=== PATIENT | female | born 1970 | race Caucasian/White ===

== ENCOUNTER 2022-02-12 09:58 | Observation (INO) | payer BC ==
--- NOTE | 2022-02-12 10:29 | ERPHSYRPT ---
- History of Present Illness Time Seen by Provider: 02/12/22 10:05 Historian: patient Exam Limitations: no limitations Patient Subjective Stated Complaint: PT states "On saturday I started to have chest pain and it just kept geting worse and worse." Triage Nursing Assessment: Pt presented alert and oriented X 3, skin wpd. Pt ambulates with an upright steady gait, able to speak in clear full sentences pt in no apparent respiratory distress. Physician History: Patient is a 51-year-old female presents emergency department for evaluation of chest pain. Patient has been experiencing intermittent chest pain for the past 3 days. Chest pain tends to radiate into her right arm, and jaw. Patient is nauseous and diaphoretic. Symptoms are intermittent. Symptoms are moderate in intensity. No specific worsening improving factors. Patient does not get routine healthcare checkups. She does not know her cholesterol level or any other significant cardiac risk factors. Patient has a history of obesity including a lap band procedure. The Lap-Band was removed recently due to complications. Patient voices no other complaint or concerns at this time. Portions of this note were created with voice recognition technology. There may be grammatical, spelling, punctuation or sound alike errors Timing/Duration: day(s) (3 days) Activities at Onset: none Quality: aching Location: substernal Chest Pain Radiation: jaw, arm, back Severity of Pain-Max: moderate Severity of Pain-Current: mild Modifying Factors: Improves With: nothing Associated Symptoms: nausea, diaphoresis Prior Chest Pain/Cardiac Workup: no prior chest pain, no prior cardiac workup Nitro Today/Relief: no nitro taken today Aspirin Treatment Today: no aspirin today Allergies/Adverse Reactions: ibuprofen Allergy (Severe, Verified 02/12/22 10:06) Swelling Iodinated Contrast Media Allergy (Severe, Verified 02/12/22 10:06) Swelling Home Medications: No Reportable Medications [No Reported Medications] 02/12/22 [History] Hx Tetanus, Diphtheria Vaccination/Date Given: No Hx Influenza Vaccination/Date Given: No Hx Pneumococcal Vaccination/Date Given: No Immunizations Up to Date: Yes Travel Risk - International Travel Have you traveled outside of the country in past 3 weeks: No - Coronavirus Screening Are you exhibiting any of the following symptoms?: No Close contact with a COVID-19 positive Pt in past 14-21 Days: No - Vaccine Status Have you recieved a Covid-19 vaccination: No - Review of Systems Constitutional: No Symptoms, No Fever, No Chills Eyes: No Symptoms Ears, Nose, & Throat: No Symptoms Respiratory: No Symptoms, No Cough, No Dyspnea Cardiac: No Symptoms, No Chest Pain, No Edema, No Syncope Abdominal/Gastrointestinal: No Symptoms, No Abdominal Pain, No Nausea, No Vomiting, No Diarrhea Genitourinary Symptoms: No Symptoms, No Dysuria Musculoskeletal: No Symptoms, No Back Pain, No Neck Pain Skin: No Symptoms, No Rash Neurological: No Symptoms, No Dizziness, No Focal Weakness, No Sensory Changes Psychological: No Symptoms Endocrine: No Symptoms Hematologic/Lymphatic: No Symptoms Immunological/Allergic: No Symptoms All Other Systems: Reviewed and Negative - Past Medical History Pertinent Past Medical History: Yes Psycho-Social History: Depression - Past Surgical History Past Surgical History: Yes Other Surgical History: lap band. lap band removal. colon. kidney stone. c section - Social History Smoking Status: Never smoker Exposure to second hand smoke: No Drug Use: none Patient Lives Alone: No - Nursing Vital Signs Nursing Vital Signs: Initial Vital Signs Temperature 97.9 F 02/12/22 09:59 Pulse Rate 74 02/12/22 09:59 Respiratory Rate 20 02/12/22 09:59 Blood Pressure 148/89 02/12/22 09:59 O2 Sat by Pulse Oximetry 94 L 02/12/22 09:59 Pain Scale Pain Intensity 0 - Physical Exam General Appearance: no apparent distress, alert Eye Exam: PERRL/EOMI, eyes nml inspection Ears, Nose, Throat Exam: normal ENT inspection, moist mucous membranes Neck Exam: normal inspection, non-tender, supple, full range of motion Respiratory Exam: normal breath sounds, lungs clear, No respiratory distress Cardiovascular Exam: regular rate/rhythm, normal heart sounds Gastrointestinal/Abdomen Exam: soft, No tenderness, No mass Back Exam: normal inspection, No CVA tenderness, No vertebral tenderness Extremity Exam: normal inspection, normal range of motion Neurologic Exam: alert, oriented x 3, cooperative, normal mood/affect, sensation nml, No motor deficits Skin Exam: normal color, warm, dry Lymphatic Exam: No adenopathy SpO2 Interpretation: normal SpO2: 94 O2 Delivery: Room Air - Course Nursing assessment & vital signs reviewed: Yes EKG Interpreted by Me: RATE (75), Sinus Rhythm, NORMAL AXIS, NORMAL INTERVALS (Nonspecific T wave abnormalities anterior leads) - Radiology Exams Chest X-ray Interpretation: Teleradiologist Report Ordered Tests: Active Orders 24 hr Category Date Time Status Keyboard Specialist STAT Care 02/12/22 10:23 Active EKG-ER Only STAT Care 02/12/22 10:21 Active IV Insertion STAT Care 02/12/22 10:21 Active Pulse Oximetry (ED) STAT Care 02/12/22 10:21 Active CHEST 1 VIEW (PORTABLE) Stat Exams 02/12/22 11:14 Completed CBC W DIFF Stat Lab 02/12/22 10:31 Completed CMP Stat Lab 02/12/22 10:31 Completed D-DIMER QUANTITATIVE Stat Lab 02/12/22 10:31 Completed TROPONIN Q4H Lab 02/12/22 10:31 Completed TROPONIN Q4H Lab 02/12/22 14:30 Ordered TROPONIN Q4H Lab 02/12/22 18:30 Ordered UA W/RFX CULTURE Stat Lab 02/12/22 10:34 Completed Transfer Order Routine Transfer 02/12/22 Ordered Medication Summary Discontinued Medications Generic Name Dose Route Start Last Admin Trade Name Freq PRN Reason Stop Dose Admin Nitroglycerin 1 gm 02/12/22 11:13 02/12/22 11:17 Nitroglycerin 1 Gm Packet TOP 02/12/22 11:14 1 gm STAT ONE Administration Nitroglycerin Confirm 02/12/22 11:17 Nitroglycerin 1 Gm Packet Administered 02/12/22 11:18 Dose 1 gm .ROUTE .STK-MED ONE Lab/Rad Data: Laboratory Result Diagrams 02/12/22 10:31 02/12/22 10:31 Laboratory Results 02/12/22 02/12/22 02/12/22 Range/Units 11:24 10:34 10:31 WBC (4.0-10.5) x10^3/uL RBC (4.1-5.4) x10^6/uL Hgb (12.0-16.0) g/dL Hct (35-47) % MCV (78-100) fL MCH (26-32) pg MCHC (32-36) g/dL RDW (11.5-14.0) % Plt Count (150-450) x10^3/uL MPV (7.5-11.0) fL Gran % (36.0-66.0) % Immature Gran % (Auto) (0.00-0.4) % Nucleat RBC Rel Count (0.00-0.1) % Eos # (Auto) (0-0.5) x10^3/uL Immature Gran # (Auto) (0.00-0.03) x10^3u/L Absolute Lymphs (auto) (1.0-4.6) x10^3/uL Absolute Monos (auto) (0.0-1.3) x10^3/uL Absolute Nucleated RBC (0.00-0.01) x10^3u/L Lymphocytes % (24.0-44.0) % Monocytes % (0.0-12.0) % Eosinophils % (0.00-5.0) % Basophils % (0.0-0.4) % Absolute Granulocytes (1.4-6.9) x10^3/uL Basophils # (0-0.4) x10^3/uL D-Dimer (0.0-0.50) mg/L Sodium (137-145) mmol/L Potassium (3.5-5.1) mmol/L Chloride (98-107) mmol/L Carbon Dioxide (22-30) mmol/L Anion Gap (5-15) MEQ/L BUN (7-17) mg/dL Creatinine (0.52-1.04) mg/dL Estimated GFR ML/MIN Glucose (74-106) mg/dL Calcium (8.4-10.2) mg/dL Total Bilirubin (0.2-1.3) mg/dL AST (14-36) U/L ALT (0-35) U/L Alkaline Phosphatase (38-126) U/L Troponin I < 0.012 (0.000-0.034) ng/mL Serum Total Protein (6.3-8.2) g/dL Albumin (3.5-5.0) g/dL Urinalys Dipstick Clnc MAIN LAB Urine Color YELLOW (YELLOW) Urine Appearance CLEAR (CLEAR) Urine pH 7.0 (5-6) Ur Specific [place] 1.025 (1.005-1.025) POC Urine Protein Conf NEGATIVE (Negative) Urine Ketones NEGATIVE (NEGATIVE) Urine Nitrite NEGATIVE (NEGATIVE) Urine Bilirubin NEGATIVE (NEGATIVE) Urine Urobilinogen 0.2 (0-1) mg/dL Urine Leukocytes NEGATIVE (NEGATIVE) Urine WBC (Auto) NONE (0-5) /HPF Urine RBC (Auto) NONE (0-2) /HPF U Epithel Cells (Auto) RARE (FEW) /HPF Urine Bacteria (Auto) NONE (NEGATIVE) /HPF Urine RBC NEGATIVE (0-5) Leonard/ul Urine Mucus (Auto) SLIGHT A (NEGATIVE) /HPF Ur Culture Indicated? NO Urine Glucose NEGATIVE (NEGATIVE) mg/dL Influenza Type A Ag NEGATIVE (NEGATIVE) Influenza Type B Ag NEGATIVE (NEGATIVE) RSV (PCR) NEGATIVE (Negative) SARS-CoV-2 (PCR) NEGATIVE (NEGATIVE) 02/12/22 02/12/22 02/12/22 Range/Units 10:31 10:31 10:31 WBC 6.6 (4.0-10.5) x10^3/uL RBC 4.55 (4.1-5.4) x10^6/uL Hgb 12.2 (12.0-16.0) g/dL Hct 40.3 (35-47) % MCV 88.6 (78-100) fL MCH 26.8 (26-32) pg MCHC 30.3 L (32-36) g/dL RDW 13.2 (11.5-14.0) % Plt Count 262 (150-450) x10^3/uL MPV 10.6 (7.5-11.0) fL Gran % 73.2 H (36.0-66.0) % Immature Gran % (Auto) 0.2 (0.00-0.4) % Nucleat RBC Rel Count 0.0 (0.00-0.1) % Eos # (Auto) 0.19 (0-0.5) x10^3/uL Immature Gran # (Auto) 0.01 (0.00-0.03) x10^3u/L Absolute Lymphs (auto) 1.21 (1.0-4.6) x10^3/uL Absolute Monos (auto) 0.32 (0.0-1.3) x10^3/uL Absolute Nucleated RBC 0.00 (0.00-0.01) x10^3u/L Lymphocytes % 18.3 L (24.0-44.0) % Monocytes % 4.8 (0.0-12.0) % Eosinophils % 2.9 (0.00-5.0) % Basophils % 0.6 (0.0-0.4) % Absolute Granulocytes 4.83 (1.4-6.9) x10^3/uL Basophils # 0.04 (0-0.4) x10^3/uL D-Dimer 0.35 (0.0-0.50) mg/L Sodium 137 (137-145) mmol/L Potassium 4.3 (3.5-5.1) mmol/L Chloride 103 (98-107) mmol/L Carbon Dioxide 29 (22-30) mmol/L Anion Gap 9.6 (5-15) MEQ/L BUN 10 (7-17) mg/dL Creatinine 0.70 (0.52-1.04) mg/dL Estimated GFR > 60.0 ML/MIN Glucose 108 H (74-106) mg/dL Calcium 9.0 (8.4-10.2) mg/dL Total Bilirubin 0.40 (0.2-1.3) mg/dL AST 18 (14-36) U/L ALT 16 (0-35) U/L Alkaline Phosphatase 80 (38-126) U/L Troponin I (0.000-0.034) ng/mL Serum Total Protein 7.4 (6.3-8.2) g/dL Albumin 4.1 (3.5-5.0) g/dL Urinalys Dipstick Clnc Urine Color (YELLOW) Urine Appearance (CLEAR) Urine pH (5-6) Ur Specific [place] (1.005-1.025) POC Urine Protein Conf (Negative) Urine Ketones (NEGATIVE) Urine Nitrite (NEGATIVE) Urine Bilirubin (NEGATIVE) Urine Urobilinogen (0-1) mg/dL Urine Leukocytes (NEGATIVE) Urine WBC (Auto) (0-5) /HPF Urine RBC (Auto) (0-2) /HPF U Epithel Cells (Auto) (FEW) /HPF Urine Bacteria (Auto) (NEGATIVE) /HPF Urine RBC (0-5) Leonard/ul Urine Mucus (Auto) (NEGATIVE) /HPF Ur Culture Indicated? Urine Glucose (NEGATIVE) mg/dL Influenza Type A Ag (NEGATIVE) Influenza Type B Ag (NEGATIVE) RSV (PCR) (Negative) SARS-CoV-2 (PCR) (NEGATIVE) - Progress Progress: improved Air Movement: good Progress Note: 02/12/22 11:13 Allergic to NSAIDs therefore no aspirin administration Case cussed with Dr. Chan who excepts admission to observation. Plan of care discussed with patient. She agrees admissions on [facility] for further evaluation and treatment. Portions of this note were created with voice recognition technology. There may be grammatical, spelling, punctuation or sound alike errors 02/12/22 13:08 Blood Culture(s) Obtained: No Antibiotics given: No Discussed with : Chiki Will see patient in: hospital (observation) Counseled pt/family regarding: lab results, diagnosis, rad results - Departure Departure Disposition: Observation Clinical Impression: Chest pain, ACS (acute coronary syndrome) Condition: Stable Critical Care Time: No Referrals: SOPHIA ANDRADE NP [Primary Care Provider] - Follow up/PCP as directed
[2022-02-12 10:36] LABS: Absolute Neutrophil Ct (ANC) 4.83 x10^3/uL (1.4-6.9); Basophil (Absolute #) 0.04 x10^3/uL (0-0.4); Eosinophil % 2.9 % (0.00-5.0); Eosinophil (Absolute #) 0.19 x10^3/uL (0-0.5); Hematocrit 40.3 % (35-47); Hemoglobin 12.2 g/dL (12.0-16.0); Lymphocyte (Absolute #) 1.21 x10^3/uL (1.0-4.6); Lymphocytes % 18.3 % (24.0-44.0); Mean Cell Volume 88.6 fL (78-100); Mean Corpuscular Hemoglobin 26.8 pg (26-32); Mean Corpuscular Hgb Concent. 30.3 g/dL (32-36); Mean Platelet Volume 10.6 fL (7.5-11.0); Monocyte (Absolute #) 0.32 x10^3/uL (0.0-1.3); Monocytes % 4.8 % (0.0-12.0); Neutrophil % 73.2 % (36.0-66.0); Platelet Count 262 x10^3/uL (150-450); Red Blood Count 4.55 x10^6/uL (4.1-5.4); Red Cell Distribution Width 13.2 % (11.5-14.0); White Blood Count 6.6 x10^3/uL (4.0-10.5)
[2022-02-12 10:41] LABS: Epithelial Cells RARE /HPF (FEW); Mucus SLIGHT /HPF (NEGATIVE)
[2022-02-12 10:46] LABS: Appearance CLEAR (CLEAR); Bilirubin NEGATIVE (NEGATIVE); Dipstick done @ ? MAIN LAB; Glucose NEGATIVE (NEGATIVE); Ketones NEGATIVE (NEGATIVE); Nitrite NEGATIVE (NEGATIVE); Protein,Urine Dip NEGATIVE (Negative); RBC NEGATIVE Ery/ul (0-5); Specific Gravity 1.025 (1.005-1.025); Urobilinogen 0.2 mg/dL (0-1)
[2022-02-12 10:47] LABS: Urine Cultured Indicated? NO
[2022-02-12 10:54] LABS: ALBUMIN 4.1 g/dL (3.5-5.0); ALKALINE PHOSPHATASE 80 U/L (38-126); ANION GAP 9.6 MEQ/L (5-15); BLOOD UREA NITROGEN 10 mg/dL (7-17); CHLORIDE 103 mmol/L (98-107); Carbon Dioxide 29 mmol/L (22-30); EST GLOMERULAR FILTRATION RATE > 60.0 ML/MIN; Glucose 108 mg/dL (74-106); Potassium 4.3 mmol/L (3.5-5.1); SGOT/AST 18 U/L (14-36); SGPT/ALT 16 U/L (0-35); SODIUM 137 mmol/L (137-145); Total Protein 7.4 g/dL (6.3-8.2)
[2022-02-12] MEDS ORDERED: NITRO-BID 2% UD PACKETS TOP ONE (11:13)
[2022-02-12] MEDS ORDERED: NITRO-BID 2% UD PACKETS ONE (11:17)
--- NOTE | 2022-02-12 11:34 | XRAY ---
Indication: Chest pain. Comparison: None Portable chest demonstrates normal heart and lungs. Bony thorax intact with minimal degenerative changes.
[2022-02-12 12:06] LABS: INFLUENZA A NEGATIVE (NEGATIVE); INFLUENZA B NEGATIVE (NEGATIVE); RESPIRATORY SYNCTIAL VIRUS NEGATIVE (Negative); SARS-CoV-2 Xpert Express NEGATIVE (NEGATIVE)
[2022-02-12] MEDS ORDERED: MAALOX ES 30 ML UNIT DOSE PO PRN (13:28)
[2022-02-12] MEDS ORDERED: Zofran 4 MG/2 ML VIAL IV PRN (13:28)
[2022-02-12] MEDS ORDERED: MILK OF MAGNESIA 30 ML PO PRN (13:28)
[2022-02-12] MEDS ORDERED: Senokot-S Tablet PO PRN (13:28)
[2022-02-12] MEDS ORDERED: Hydromorphone 1 mg/ml Injection IV PRN (13:36)
[2022-02-12] MEDS: TYLENOL 325 MG PO PRN (16:41)
[2022-02-12] MEDS ORDERED: VENTOLIN COMMON CANISTER IH PRN (20:24)
[2022-02-13] MEDS: TYLENOL 325 MG PO PRN (04:48)
[2022-02-13 06:40] LABS: Risk Ratio 4.3
[2022-02-13 06:48] VITALS: O2SAT 96
[2022-02-13] MEDS ORDERED: FLUZONE QUAD 2022-2023 SYRINGE IM ONE (10:00)
[2022-02-13 11:20] VITALS: BP 138/72; PULSE 74
--- NOTE | 2022-02-13 15:34 | PCM.SSS ---
History of Present Illness - Chief Complaint Chief Complaint: chest pain for 2-3 days History of Present Illness: is a 51 year old female.presents emergency department for evaluation of chest pain. Patient has been experiencing intermittent chest pain for the past 3 days. Chest pain tends to radiate into her right arm, and jaw. Patient is nauseous and diaphoretic. Symptoms are intermittent. Symptoms are moderate in intensity. No specific worsening improving factors. Patient does not get routine healthcare checkups. She does not know her cholesterol level or any other significant cardiac risk factors. Patient has a history of obesity including a lap band procedure. The Lap-Band was removed recently due to complications. - Review of Systems Constitutional: No Fever, No Chills Eyes: No Symptoms Ears, Nose, & Throat: No Symptoms Respiratory: No Cough, No Short Of Breath Cardiac: Chest Pain, No Edema, No Syncope Abdominal/Gastrointestinal: Nausea, No Abdominal Pain, No Vomiting, No Diarrhea Genitourinary Symptoms: No Dysuria Musculoskeletal: No Back Pain, No Neck Pain Skin: No Rash Neurological: No Dizziness, No Focal Weakness, No Sensory Changes Psychological: No Symptoms Endocrine: No Symptoms Hematologic/Lymphatic: No Symptoms Immunological/Allergic: No Symptoms Medications & Allergies Home Medications: Home Medication List No Reportable Medications [No Reported Medications] 02/12/22 [History Confirmed 02/12/22] Allergies/Adverse Reactions: Allergies Allergy/AdvReac Type Severity Reaction Status Date / Time ibuprofen Allergy Severe Swelling Verified 02/12/22 10:06 Iodinated Contrast Media Allergy Severe Swelling Verified 02/12/22 10:06 - Past Medical History Past Medical History: Yes Neurological History: TIA Pyscho-Social History: Depression - Female History Are you now?: No - Past Surgical History Past Surgical History: Yes Other Surgical History: lap band. lap band removal. colon polyps removed. kidney stone. c section - Social History Smoking Status: Never smoker Exposure to second hand smoke: No Alcohol: None Drug Use: none - Physical Exam Vital Signs: Vital Signs - 24 hr Temp Pulse Resp BP Pulse Ox 02/13/22 11:19 97.8 F 74 18 138/72 96 02/13/22 08:17 72 20 96 02/13/22 06:48 97.1 F 72 20 133/65 96 02/13/22 04:00 96.9 F 77 17 107/58 97 02/12/22 23:02 97.5 F 78 16 127/58 97 02/12/22 20:25 79 16 97 02/12/22 20:00 97 02/12/22 18:56 97.7 F 80 16 136/76 97 02/12/22 16:00 97.7 F 78 16 138/76 97 General Appearance: no apparent distress, alert Neurologic Exam: alert, oriented x 3, cooperative, normal mood/affect, nml cerebellar function, nml station & gait, sensation nml, No motor deficits Eye Exam: PERRL/EOMI, eyes nml inspection Ears, Nose, Throat Exam: normal ENT inspection, TMs normal, pharynx normal, moist mucous membranes Neck Exam: normal inspection, non-tender, supple, full range of motion Respiratory Exam: normal breath sounds, lungs clear, No respiratory distress Cardiovascular Exam: regular rate/rhythm, normal heart sounds, normal peripheral pulses Gastrointestinal/Abdomen Exam: soft, normal bowel sounds, No tenderness, No mass Back Exam: normal inspection, normal range of motion, No CVA tenderness, No vertebral tenderness Extremity Exam: normal inspection, normal range of motion, pelvis stable Skin Exam: normal color, warm, dry, No rash Lymphatic Exam: No adenopathy Results - Labs Lab/Micro Results: Lab Results-Last 24 Hours 02/12/22 02/12/22 02/13/22 Range/Units 17:45 23:00 05:00 Troponin I < 0.012 < 0.012 (0.000-0.034) ng/mL Triglycerides 82 (30-150) mg/dL Cholesterol 178 (50-200) mg/dL LDL Cholesterol 102 H (30-100) mg/dL HDL Cholesterol 41 (40-60) mg/dL Heart Disease Risk Ratio 4.3 - Radiology Impressions Radiology Exams & Impressions: Radiology Procedures Category Date Time Status CHEST 1 VIEW (PORTABLE) Stat Exams 02/12/22 11:14 Completed 0018 RAD/CHEST 1 VIEW (PORTABLE) Indication: Chest pain. Comparison: None Portable chest demonstrates normal heart and lungs. Bony thorax intact with minimal degenerative changes. Assessment/Plan (1) ACS (acute coronary syndrome) Status: Acute Assessment & Plan: Chief Complaint Diagnosis chest pain for 2-3 days Allergies Allergy/AdvReac Type Severity Reaction Status Date / Time ibuprofen Allergy Severe Swelling Verified 02/12/22 10:06 Iodinated Contrast Media Allergy Severe Swelling Verified 02/12/22 10:06 Vital Signs (Last 24 hours) Temp Pulse Resp BP Pulse Ox 02/13/22 11:19 97.8 F 74 18 138/72 96 02/13/22 08:17 72 20 96 02/13/22 06:48 97.1 F 72 20 133/65 96 02/13/22 04:00 96.9 F 77 17 107/58 97 02/12/22 23:02 97.5 F 78 16 127/58 97 02/12/22 20:25 79 16 97 02/12/22 20:00 97 02/12/22 18:56 97.7 F 80 16 136/76 97 02/12/22 16:00 97.7 F 78 16 138/76 97 Home Medications Medication Instructions Recorded Confirmed Last Taken Type No Reportable Medications [No 02/12/22 02/12/22 Unknown History Reported Medications] Current Medications Discontinued Medications Generic Name Dose Route Start Last Admin Trade Name Freq PRN Reason Stop Dose Admin Acetaminophen 650 mg 02/12/22 13:28 02/13/22 04:48 Acetaminophen 325 Mg Tablet PO 03/14/22 13:27 650 mg Q4H PRN PRN Administration PAIN AND/OR FEVER Al Hydrox/Mg Hydrox/Simethicone 30 ml 02/12/22 13:28 Mag Hydrox/Al Hydrox/Simeth 30 Ml Udcup PO 03/14/22 13:27 Q4H PRN PRN INDIGESTION Albuterol Sulfate 2 puff 02/12/22 20:24 02/12/22 20:25 Albuterol Common Canister Inhaler IH 03/14/22 20:23 2 puff Q4H PRN PRN Administration SHORTNESS OF BREATH/WHEEZING Hydromorphone HCl 0.5 mg 02/12/22 13:36 02/12/22 13:57 Hydromorphone 1 Mg/1ml Inj 1 Mg/Ml Syringe IV 02/17/22 13:35 0.5 mg Q4H PRN PRN Administration PAIN Magnesium Hydroxide 30 - 60 ml 02/12/22 13:28 Magnesium Hydroxide 30 Ml Udcup PO 03/14/22 13:27 QDP PRN CONSTIPATION Nitroglycerin 1 gm 02/12/22 11:13 02/12/22 11:17 Nitroglycerin 1 Gm Packet TOP 02/12/22 11:14 1 gm STAT ONE Administration Nitroglycerin Confirm 02/12/22 11:17 Nitroglycerin 1 Gm Packet Administered 02/12/22 11:18 Dose 1 gm .ROUTE .STK-MED ONE Ondansetron HCl 4 mg 02/12/22 13:28 Ondansetron Hcl 4 Mg/2 Ml Vial IV 03/14/22 13:27 Q4H PRN PRN NAUSEA/VOMITING Senna/Docusate Sodium 2 udtab 02/12/22 13:28 Senna/Docusate Sodium 1 Udtab Tablet PO 03/14/22 13:27 BID PRN PRN CONSTIPATION Intake & Output (Last 24 hours) 02/11/22 02/12/22 02/13/22 02/14/22 11:59 11:59 11:59 11:59 Intake Total 1440 600 Output Total 350 Balance 1090 600 Weight 129.9 kg 128.9 kg Laboratory Results (Last 24 hours) 02/13/22 02/12/22 02/12/22 05:00 23:00 17:45 Troponin I < 0.012 < 0.012 Triglycerides 82 Cholesterol 178 LDL Cholesterol 102 H HDL Cholesterol 41 Heart Disease Risk Ratio 4.3 Orders (Last 24 hours) Category Date Time Status Medical Biller/Discharge Plan ROUTINE Cons 02/12/22 14:35 Completed Discharge Routine Discharge 02/13/22 12:13 Ordered LIPID PROFILE AM.LAB Lab 02/13/22 05:00 Completed TROPONIN Q4H Lab 02/12/22 17:45 Completed TROPONIN Q4H Lab 02/12/22 23:00 Completed Albuterol Common Canister [Ventolin Common Canister* Med 02/12/22 20:24 Discontinued ] 2 puff IH Q4H PRN PRN Flu Vacc [id number](6Mos Up)/Pf [Fluzone Quad [id number] Med 02/13/22 10:00 Discontinued Syringe] 60 mcg IM .ONCE ONE EKG DAILY RT 02/13/22 05:00 Completed EKG DAILY RT 02/14/22 05:00 Completed EKG DAILY RT 02/15/22 05:00 Completed EKG ROUTINE RT 02/12/22 18:21 Completed Pulse Oximetry .spot check RT 02/12/22 21:18 Completed Respiratory Therapy Assessment DAILY RT 02/12/22 21:18 Completed Patient Care Notes (Last 24 hours) 02/13/22 12:18 Nursing Note by Zahida Figueroa ROUNDING WITH DR ANTHONY, ORDERS RECIEVED TO D/C PT HOME, FOLLOW UP APPOINTMENT SCHEDULED WITH TRAFFIC PERSONNEL SUPERVISOR SEGUNDO LEHMAN IN [place] 03/21/2022, FOLLOW UP APPOINMENT WITH DR ANTHONY 02/19/2022 IN [facility] Initialized on 02/13/22 12:18 - END OF NOTE 02/13/22 09:51 (created 02/13/22 10:19) Nursing Note by Josefa Anderson FAXED RECORDS TO [facility] PERSONNEL SUPERVISOR OFFICE Initialized on 02/13/22 10:19 - END OF NOTE Code(s): I24.9 - ACUTE ISCHEMIC HEART DISEASE, UNSPECIFIED (2) Chest pain Status: Acute Qualifiers: Chest pain type: other chest pain Qualified Code(s): R07.89 - Other chest pain; R07.8 - Other chest pain Code(s): R07.9 - CHEST PAIN, UNSPECIFIED Hospital Summary - Hospital Course Hospital Course: Chief Complaint Diagnosis chest pain for 2-3 days Allergies Allergy/AdvReac Type Severity Reaction Status Date / Time ibuprofen Allergy Severe Swelling Verified 02/12/22 10:06 Iodinated Contrast Media Allergy Severe Swelling Verified 02/12/22 10:06 Vital Signs (Last 24 hours) Temp Pulse Resp BP Pulse Ox 02/13/22 11:19 97.8 F 74 18 138/72 96 02/13/22 08:17 72 20 96 02/13/22 06:48 97.1 F 72 20 133/65 96 02/13/22 04:00 96.9 F 77 17 107/58 97 02/12/22 23:02 97.5 F 78 16 127/58 97 02/12/22 20:25 79 16 97 02/12/22 20:00 97 02/12/22 18:56 97.7 F 80 16 136/76 97 02/12/22 16:00 97.7 F 78 16 138/76 97 Home Medications Medication Instructions Recorded Confirmed Last Taken Type No Reportable Medications [No 02/12/22 02/12/22 Unknown History Reported Medications] Current Medications Discontinued Medications Generic Name Dose Route Start Last Admin Trade Name Freq PRN Reason Stop Dose Admin Acetaminophen 650 mg 02/12/22 13:28 02/13/22 04:48 Acetaminophen 325 Mg Tablet PO 03/14/22 13:27 650 mg Q4H PRN PRN Administration PAIN AND/OR FEVER Al Hydrox/Mg Hydrox/Simethicone 30 ml 02/12/22 13:28 Mag Hydrox/Al Hydrox/Simeth 30 Ml Udcup PO 03/14/22 13:27 Q4H PRN PRN INDIGESTION Albuterol Sulfate 2 puff 02/12/22 20:24 02/12/22 20:25 Albuterol Common Canister Inhaler IH 03/14/22 20:23 2 puff Q4H PRN PRN Administration SHORTNESS OF BREATH/WHEEZING Hydromorphone HCl 0.5 mg 02/12/22 13:36 02/12/22 13:57 Hydromorphone 1 Mg/1ml Inj 1 Mg/Ml Syringe IV 02/17/22 13:35 0.5 mg Q4H PRN PRN Administration PAIN Magnesium Hydroxide 30 - 60 ml 02/12/22 13:28 Magnesium Hydroxide 30 Ml Udcup PO 03/14/22 13:27 QDP PRN CONSTIPATION Nitroglycerin 1 gm 02/12/22 11:13 02/12/22 11:17 Nitroglycerin 1 Gm Packet TOP 02/12/22 11:14 1 gm STAT ONE Administration Nitroglycerin Confirm 02/12/22 11:17 Nitroglycerin 1 Gm Packet Administered 02/12/22 11:18 Dose 1 gm .ROUTE .STK-MED ONE Ondansetron HCl 4 mg 02/12/22 13:28 Ondansetron Hcl 4 Mg/2 Ml Vial IV 03/14/22 13:27 Q4H PRN PRN NAUSEA/VOMITING Senna/Docusate Sodium 2 udtab 02/12/22 13:28 Senna/Docusate Sodium 1 Udtab Tablet PO 03/14/22 13:27 BID PRN PRN CONSTIPATION Intake & Output (Last 24 hours) 02/11/22 02/12/22 02/13/22 02/14/22 11:59 11:59 11:59 11:59 Intake Total 1440 600 Output Total 350 Balance 1090 600 Weight 129.9 kg 128.9 kg Laboratory Results (Last 24 hours) 02/13/22 02/12/22 02/12/22 05:00 23:00 17:45 Troponin I < 0.012 < 0.012 Triglycerides 82 Cholesterol 178 LDL Cholesterol 102 H HDL Cholesterol 41 Heart Disease Risk Ratio 4.3 Orders (Last 24 hours) Category Date Time Status Medical Biller/Discharge Plan ROUTINE Cons 02/12/22 14:35 Completed Discharge Routine Discharge 02/13/22 12:13 Ordered LIPID PROFILE AM.LAB Lab 02/13/22 05:00 Completed TROPONIN Q4H Lab 02/12/22 17:45 Completed TROPONIN Q4H Lab 02/12/22 23:00 Completed Albuterol Common Canister [Ventolin Common Canister* Med 02/12/22 20:24 Discontinued ] 2 puff IH Q4H PRN PRN Flu Vacc [id number](6Mos Up)/Pf [Fluzone Quad Med 02/13/22 10:00 Discontinued Syringe] 60 mcg IM .ONCE ONE EKG DAILY RT 02/13/22 05:00 Completed EKG DAILY RT 02/14/22 05:00 Completed EKG DAILY RT 02/15/22 05:00 Completed EKG ROUTINE RT 02/12/22 18:21 Completed Pulse Oximetry .spot check RT 02/12/22 21:18 Completed Respiratory Therapy Assessment DAILY RT 02/12/22 21:18 Completed Patient Care Notes (Last 24 hours) 02/13/22 12:18 Nursing Note by Zahida Figueroa ROUNDING WITH DR ANTHONY, ORDERS RECIEVED TO D/C PT HOME, FOLLOW UP APPOINTMENT SCHEDULED WITH TRAFFIC PERSONNEL SUPERVISOR SEGUNDO LEHMAN IN [place] 03/21/2022, FOLLOW UP APPOINMENT WITH DR ANTHONY 02/19/2022 IN [facility] Initialized on 02/13/22 12:18 - END OF NOTE 02/13/22 09:51 (created 02/13/22 10:19) Nursing Note by Josefa Anderson FAXED RECORDS TO [facility]IC PERSONNEL SUPERVISOR OFFICE Initialized on 02/13/22 10:19 - END OF NOTE - Vitals & Intake/Output Vital Signs: Vital Signs Temperature 97.8 F 02/13/22 11:19 Pulse Rate 74 02/13/22 11:19 Respiratory Rate 18 02/13/22 11:19 Blood Pressure 138/72 02/13/22 11:19 O2 Sat by Pulse Oximetry 96 02/13/22 11:19 Intake & Output: Intake & Output 02/11/22 02/12/22 02/13/22 02/14/22 11:59 11:59 11:59 11:59 Intake Total 1440 600 Output Total 350 Balance 1090 600 Weight 129.9 kg 128.9 kg - Lab Result Diagrams: 02/12/22 10:31 02/12/22 10:31 Lab Results-Last 24 Hrs: Lab Results-Last 24 Hours 02/12/22 02/12/22 02/13/22 Range/Units 17:45 23:00 05:00 Troponin I < 0.012 < 0.012 (0.000-0.034) ng/mL Triglycerides 82 (30-150) mg/dL Cholesterol 178 (50-200) mg/dL LDL Cholesterol 102 H (30-100) mg/dL HDL Cholesterol 41 (40-60) mg/dL Heart Disease Risk Ratio 4.3 - Radiology Exams Ordered Rad Exams-Entire Visit: Radiology Procedures Category Date Time Status CHEST 1 VIEW (PORTABLE) Stat Exams 02/12/22 11:14 Completed - Procedures and Test Procedures and Tests throughout Hospitalization: Therapy Orders & Screens 02/12/22 13:28 EKG Q8HX2,QAMX3,PRN Comment: 02/12/22 18:21 EKG ROUTINE Comment: Diagnosis: ACS 02/12/22 21:18 Respiratory Therapy Assessment DAILY Comment: Diagnosis: ACS 02/13/22 05:00 EKG DAILY Comment: Diagnosis: ACS 02/14/22 05:00 EKG DAILY Comment: Diagnosis: ACS 02/15/22 05:00 EKG DAILY Comment: Diagnosis: ACS - Discharge Discharge Date: 02/13/22 Disposition: Home, Self-Care Condition: Stable Prescriptions: No Action No Reportable Medications [No Reported Medications] Instructions: Chest Pain Additional Instructions: Cardiology appointment setup with Martine Lehman NP at [facility]. 03/21/22 @ 2:45 pm. Office will call patient if sooner appointment becomes available. [facility] [place] [id number] Follow up with: CONSTANCE ANTHONY MD [Family Provider] - 02/19/22 10:00 am ([place] [facility]) Forms: Discharge Instructions
== END 2022-02-13 14:24 | disposition home or self-care (01) ==
LOC: ED 09:58 → MED SURG 13:21
PROVIDERS: ADMIT General Practice; ATTEND General Practice
DX: I24.9 Acute ischemic heart disease, unspecified (principal); R07.89 Other chest pain; Z20.828 Contact with and (suspected) exposure to other viral communicable diseases
CPT/HCPCS: 0241U; 36000; 36415; 71045; 80053; 80061; 81015; 83721; 84484; 85025; 85379; 93005; 93041; 94640; 94760; 99285; G0008; 90686; 93268; J1170; A9270-GY; G0378

== ENCOUNTER 2023-06-17 19:29 | Emergency (ER) | payer BC, OTHER ==
--- NOTE | 2023-06-17 19:55 | ERPHSYRPT ---
- History of Present Illness Time Seen by Provider: 06/17/23 19:55 Source: patient Exam Limitations: no limitations Physician History: This is a morbidly obese 52-year-old white female patient who presents with generalized throbbing headache. She was brought into the emergency department by private vehicle by her . Patient took Tylenol at 10 AM and 325 mg of aspirin at 1500. The headache has been present for 5 days and today was worse. Prior to this, per the 's report, the patient has had intermittent, more frequent headaches. Patient does see a neurologist for her migraine headaches. Patient states that she has been told that she had a stroke although there is no actual documentation that that has in fact occurred. Patient's systolic blood pressure on admission was approximately 171. Patient denies chest pain. Patient is under a lot of stress at this time taking care of a parent who has had a stroke in the recent past. Patient denies neck pain. Patient denies visual changes although there is light sensitivity. Patient states that she has had Demerol in the past when her headaches became severe. She denies trauma to her head. Patient states that the headache this evening is different than her typical migraine headaches Timing/Duration: day(s) (5), worse (Today symptoms worse) Quality: aching, throbbing Head Pain Location: global Severity of Pain-Max: moderate Severity of Pain-Current: moderate Recent Head Trauma: no recent headache/trauma, chronic headaches Associated Symptoms: sensitive to light, No confusion, No dizziness, No speech problems, No vision changes, No visual disturbance Previous symptoms: different symptoms, no recent treatment Allergies/Adverse Reactions: ibuprofen Allergy (Severe, Verified 02/12/22 10:06) Swelling Iodinated Contrast Media Allergy (Severe, Verified 02/12/22 10:06) Swelling latex Allergy (Intermediate, Verified 06/17/23 20:37) Rash Home Medications: No Reportable Medications [No Reported Medications] 02/12/22 [History] Hx Tetanus, Diphtheria Vaccination/Date Given: No Hx Influenza Vaccination/Date Given: No Hx Pneumococcal Vaccination/Date Given: No Travel Risk - International Travel Have you traveled outside of the country in past 3 weeks: No - Coronavirus Screening Are you exhibiting any of the following symptoms?: No Close contact with a COVID-19 positive Pt in past 14-21 Days: No - Vaccine Status Have you recieved a Covid-19 vaccination: No - Review of Systems Constitutional: No Symptoms Eyes: No Symptoms Ears, Nose, & Throat: No Symptoms Respiratory: No Symptoms Cardiac: No Symptoms Abdominal/Gastrointestinal: No Symptoms Genitourinary Symptoms: No Symptoms Musculoskeletal: No Symptoms Skin: No Symptoms Neurological: Headache Psychological: No Symptoms Endocrine: No Symptoms Hematologic/Lymphatic: No Symptoms Immunological/Allergic: No Symptoms All Other Systems: Reviewed and Negative - Past Medical History Pertinent Past Medical History: Yes Neurological History: TIA Psycho-Social History: Depression - Past Surgical History Past Surgical History: Yes Other Surgical History: lap band. lap band removal. colon polyps removed. kidney stone. c section - Social History Smoking Status: Never smoker Exposure to second hand smoke: No Drug Use: none Patient Lives Alone: No - Nursing Vital Signs Nursing Vital Signs: Initial Vital Signs Temperature 97.4 F 06/17/23 20:20 Pulse Rate 88 06/17/23 20:20 Respiratory Rate 18 06/17/23 20:20 Blood Pressure 171/86 06/17/23 20:20 O2 Sat by Pulse Oximetry 97 06/17/23 20:20 Pain Scale Pain Intensity 10 - Physical Exam General Appearance: no apparent distress, alert, anxiety, obese Eye Exam: PERRL/EOMI, eyes nml inspection Ears, Nose, Throat Exam: normal ENT inspection, TMs normal, moist mucous membranes Neck Exam: normal inspection, non-tender, supple, full range of motion Respiratory Exam: normal breath sounds, lungs clear, airway intact, No chest tenderness, No respiratory distress Cardiovascular Exam: regular rate/rhythm, normal heart sounds, normal peripheral pulses Gastrointestinal/Abdominal Exam: soft, normal bowel sounds, No tenderness Back Exam: normal inspection, normal range of motion, No CVA tenderness, No vertebral tenderness Extremity Exam: normal inspection, normal range of motion, pelvis stable Mental Status Exam: alert, oriented x 3, cooperative preventive maintenance engineer Exam: normal hearing, normal speech, PERRL Coordination/Gait Exam: normal gait, normal cerebellar function Motor/Sensory Exam: no motor deficit, no sensory deficit Skin Exam: normal color, warm, dry Lymphatic Exam: No adenopathy SpO2 Interpretation: normal O2 Delivery: Room Air Comments: Patient's systolic blood pressure at the time of my examination is 145 mmHg Ordered Tests: Active Orders 24 hr Category Date Time Status HEAD WITHOUT CONTRAST [CT] Stat Exams 06/17/23 20:54 Taken Medication Summary Generic Name Dose Route Start Last Admin Trade Name Domonique PRN Reason Stop Dose Admin Ondansetron HCl 4 mg 06/17/23 23:46 Zofran 4 Mg/Udtablet Orally Disintegrating PO 06/17/23 23:47 STAT ONE Discontinued Medications Generic Name Dose Route Start Last Admin Trade Name Baironq PRN Reason Stop Dose Admin Meperidine HCl 50 mg 06/17/23 23:45 Meperidine Hcl 50 Mg/Ml Carp IM 06/17/23 23:46 STAT ONE - Progress Progress: re-examined Air Movement: good Progress Note: 06/17/23 22:59 CT scan of the head without contrast is a normal study. This study was interpreted by the radiologist and I reviewed the impression. 06/17/23 23:52 Patient's medical issue is 1 of low complexity. The level of complexity in the workup performed is based on review of the patient's past medical history, review the patient's medication list, review the patient drug allergy list, history of present illness and physical findings on examination. The workup in this patient includes CT scan of the head without contrast. CT scan of the head without contrast was interpreted by the radiologist. I reviewed the impression. The impression is a normal head CT without contrast. Blood Culture(s) Obtained: No Antibiotics given: No Counseled pt/family regarding: diagnosis, need for follow-up, rad results Medical Desision Making - Independent Historian Additional History obtained from: Spouse - Diagnostic Testing Diagnostic test were ordered, analyzed, and reviewed by me: Yes Radiological Interpretation: Reviewed by me, Teleradiologist Report - Risk of complications Low Risk: Low risk of morbidity from additional dx testing or treatment - Departure Departure Disposition: Home Clinical Impression: Migraine headache Condition: Stable Critical Care Time: No Referrals: DOCTOR,NO FAMILY [Primary Care Provider] - Follow up/PCP as directed Additional Instructions: Take all your medications as prescribed. Call your primary care provider tomorrow, 06/18/2023, to make arrangements for further evaluation and management in the next 3 to 5 days.
[2023-06-17 20:36] VITALS: TEMP 97.4
[2023-06-18] MEDS ORDERED: DEMEROL 50 MG ONE (00:16)
[2023-06-18] MEDS ORDERED: ZOFRAN ODT 4 MG ONE (00:16)
[2023-06-18] MEDS: ZOFRAN ODT 4 MG PO ONE (00:19)
[2023-06-18] MEDS: DEMEROL 50 MG IM ONE (00:19)
[2023-06-18 00:44] VITALS: BP 144/76; PULSE 74; RESP 16; O2SAT 90
--- NOTE | 2023-06-18 08:43 | XRAY ---
Indication: Headache. Multiple contiguous axial images obtained through the head without contrast. Comparison: None Normal appearing brain parenchyma, ventricles, and bony calvarium. Moderate mucosal thickening right maxillary and lesser degree left maxillary sinuses. Remaining visualized paranasal sinuses and mastoid air cells are clear. Impression: Normal CT head without contrast exam. Incidental paranasal sinus disease.
== END 2023-06-18 00:50 | disposition home or self-care (01) ==
LOC: ED 19:29
DX: G43.909 Migraine, unspecified, not intractable, without status migrainosus (principal); Z28.310 Unvaccinated for COVID-19
CPT/HCPCS: 70450; 96372; 99283; J2175; Q0162